=== PATIENT | female | born 1950 ===

== ENCOUNTER → 2022-11-22 | Outpatient (CLI) | payer MEDICARE, OTHER | LOC: COL.RAD 13:25 | DX: E04.1 Nontoxic single thyroid nodule (principal) | CPT/HCPCS: A9516 ==

== ENCOUNTER → 2022-11-23 | Outpatient (CLI) | payer MEDICARE | LOC: COL.RAD 13:33 | DX: E04.1 Nontoxic single thyroid nodule (principal) ==